=== PATIENT | female | born 1960 | race Caucasian/White ===

== ENCOUNTER 2023-12-16 09:12 | Emergency (ER) | payer OTHER ==
[~2023-12-16] VITALS: Ht 162.6 cm; Wt 52.6 kg
[2023-12-16 11:33] VITALS: BP 130/72; PULSE 60; RESP 18; O2SAT 99
== END 2023-12-16 13:10 | disposition home or self-care (01) ==
LOC: EDH 09:12
DX: M25.532 Pain in left wrist (principal)
CPT/HCPCS: 70450; 70486; 73200